=== PATIENT | female | born 1965 | race Two or more races ===

== ENCOUNTER 2019-12-24 08:29 | Day surgery (SDC) | payer OTHER ==
[~2019-12-24] VITALS: Ht 157.5 cm; Wt 55.3 kg
[2019-12-24] VITALS (9 sets, daily range): BP systolic 109–123; BP diastolic 67–81
[~2019-12-24 08:29] MED LIST: LR 1000ml 1,000 ML IVLG SCH; Lidocaine 1% Plain 30 ml INJ ONE
[2019-12-24] MEDS ORDERED: Propofol 200mg/20ml IV ONE (10:00)
[2019-12-24] MEDS ORDERED: LR 1000ml ONE (10:00)
--- NOTE | 2019-12-24 10:06 | Pre-Procedure Note/Attestation ---
Pre-Procedure Note/Attestation Complete Prior to Procedure Planned Procedure: not applicable Procedure Narrative: EGD Colon Indications for Procedure Pre-Operative Diagnosis: abd pain screening Attestation I attest that I discussed the nature of the procedure; its benefits; risks and complications; and alternatives (and the risks and benefits of such alternatives ), prior to the procedure, with the patient (or the patient's legal career representative). I attest that, if there was a reasonable possibility of needing a blood transfusion, the patient (or the patient's legal career representative) was given the [facility] standardized written summary, pursuant to the [employer] [place] Blood Safety Act ([place] Health and Safety Code # 1645, as amended). I attest that I re-evaluated the patient just prior to the surgery and that there has been no change in the patient's H&P, except as documented below: Emmy Duque MD Dec 24, 2019 10:06
--- NOTE | 2019-12-24 10:07 | Short Stay Surgery H&P ---
History of Present Illness History of Present Illness Chief Complaint see typed H&P HPI Eleni Billy is a 54 year old female who was admitted on for Gerd Asnd Screening Colonoscopy Patient History Allergies: Coded Allergies: Dairy (Verified Adverse Reaction, Intermediate, "gas pain", 12/24/19) Medication History No Active Prescriptions or Reported Meds Physical Exam Vital Signs Last Vital Signs Date Time Temp Pulse Resp B/P (MAP) Pulse Ox O2 Delivery O2 Flow Rate FiO2 12/24/19 09:13 97.6 76 18 114/80 100 Room Air Labs Laboratory Tests Test 12/24/19 08:45 Urine HCG, Qualitative Negative (NEGATIVE) Plan Attestation Are the patient's medical conditions optimized for surgery? Emmy Duque MD Dec 24, 2019 10:07
--- NOTE | 2019-12-24 10:28 | Anethesia Preoperative Eval ---
Anesthesia Pre-op PMH/ROS General Date of Evaluation: Dec 24, 2019 Time of Evaluation: 09:59 Anesthesiologist: Kennedy ASA Score: ASA 2 Mallampati Score Class I : Soft palate, uvula, fauces, pillars visible Class II: Soft palate, uvula, fauces visible Class III: Soft palate, base of uvula visible Class IV: Only hard plate visible Mallampati Classification: Class I Surgeon: Neto Diagnosis: GERD Surgical Procedure: EGD/Colonscopy Anesthesia History: none Family History: no anesthesia problems Allergies: Coded Allergies: Dairy (Verified Adverse Reaction, Intermediate, "gas pain", 12/24/19) Medications: see eMAR Patient NPO?: Yes Past Medical History Pulmonary: Reports: other - Bronchitis Gastrointestinal/Genitourinary: Reports: GERD Anesthesia Pre-op Phys. Exam Physician Exam Last Vital Signs Date Time Temp Pulse Resp B/P (MAP) Pulse Ox O2 Delivery O2 Flow Rate FiO2 12/24/19 09:13 97.6 76 18 114/80 100 Room Air Constitutional: NAD Neurologic: CN 2-12 intact Cardiovascular: RRR Respiratory: CTA Gastrointestinal: S/NT/ND Airway Exam Mallampati Score: Class I MO: full ROM: full Teeth: intact Anesthesia Pre-op A/P Labs Urine Test Test 12/24/19 08:45 Urine HCG, Qualitative Negative (NEGATIVE) Risk Assessment & Plan Assessment: ASA 2 Plan: TIVA Status Change Before Surgery: No Charly Benavides MD Dec 24, 2019 10:28
--- NOTE | 2019-12-24 10:29 | Immediate Post-Op Evaluation ---
Immediate Post-Op Evalulation Immediate Post-Op Evalulation Procedure: EGD/Colonoscopy Date of Evaluation: Dec 24, 2019 Time of Evaluation: 11:25 IV Fluids: 900 LR Blood Products: 0 Estimated Blood Loss: 1 Urinary Output: 0 Blood Pressure Systolic: 123 Blood Pressure Diastolic: 81 Pulse Rate: 69 Respiratory Rate: 16 O2 Sat by Pulse Oximetry: 100 Temperature (Fahrenheit): 97.9 Pain Score (1-10): 1 Nausea: No Vomiting: No Patient Status: awake, reacts, patent, none Hydration Status: adequate Charly Benavides MD Dec 24, 2019 10:29
--- NOTE | 2019-12-24 10:30 | 48 Hour Post Anesthesia Eval ---
Post Anesthesia Evaluation Procedure: EGD/Colonoscopy Date of Evaluation: Dec 24, 2019 Time of Evaluation: 13:34 Blood Pressure Systolic: 121 0: 69 Pulse Rate: 64 Respiratory Rate: 18 Temperature (Fahrenheit): 98 O2 Sat by Pulse Oximetry: 100 Airway: patent Nausea: No Vomiting: No Pain Intensity: 1 Hydration Status: adequate Cardiopulmonary Status: Stable Mental Status/LOC: patient returned to baseline Follow-up Care/Observations: 0 Post-Anesthesia Complications: 0 Follow-up care needed: ready to discharge Charly Benavides MD Dec 24, 2019 10:29
--- NOTE | 2019-12-24 11:01 | Endoscopy Procedure Note ---
Endoscopy Procedure Note General Indication for Procedure: abd pain, screen Procedures Performed: EGD, colonoscopy Operative Findings/Diagnosis: Normal Specimen: yes Pt Tolerated Procedure Well: Yes Estimated Blood Loss: none Anesthesia Anesthesiologist: Kennedy Anesthesia: MAC Medications Medication Given: see anesthesia record Inserted Devices Implant(s) used?: No GI Core Measures 50 yrs or older w/o bx or poly: Not Applicable 10yrs. F/U recommended: Not Applicable Emmy Duque MD Dec 24, 2019 11:01
--- NOTE | 2019-12-24 11:03 | Brief Operative Note ---
Immediate Post Operative Note Operative Note Chief Complaint: abd paiin, screen Pre-op Diagnosis: abd pain screening Procedure: esophagogastroduodenoscopy bx, colon, Post-op Diagnosis: Normal Surgeon: jc Anesthesiologist: Kennedy Anesthesia: MAC Specimen: yes Complications: none Condition: stable Fluids: given per anesthesia Estimated Blood Loss: none Drains: none Implant(s) used?: No Emmy Duque MD Dec 24, 2019 11:03
--- NOTE | 2019-12-24 17:01 | Procedure Note ---
DATE OF PROCEDURE: 12/24/2019 GASTROENTEROLOGY PROCEDURE REPORT PROCEDURE: Upper gastrointestinal endoscopy with biopsy as well as colonoscopy. SURGEON: Emmy Duque M.D. ANESTHESIA: Please see the separate anesthesiologist notes for details. PRE-ENDOSCOPIC DIAGNOSES: 1. Abdominal pain. 2. Need for screening colonoscopy. POST-ENDOSCOPIC DIAGNOSES: 1. Normal upper endoscopy, status post random biopsies of the duodenum, antrum, and lower esophagus. 2. Normal terminal ileum to about 10 cm. 3. Negative screening colonoscopy for polyps, although there was some minor degree of mucosal coverage due to the residual stool with seeds as described below. PROCEDURE IN DETAIL: The procedure, its risks, indications, alternatives, and possible complications were explained to the patient and informed consent was obtained. The patient was then sedated in the left lateral decubitus position and a diagnostic upper endoscope was introduced into oropharynx and advanced to the duodenum without difficulty. The endoscope was then gradually withdrawn and mucosa examined carefully. Examination of the upper gastrointestinal mucosa did not reveal any abnormalities. Biopsies of the duodenum, antrum, and lower esophagus were sent to pathology for review. The endoscope was removed. The rectal exam was done. The colonoscope was introduced in the rectum and advanced to the terminal ileum without difficulty. The colonoscope was then gradually withdrawn and mucosa examined carefully. The distal 10 cm of the terminal ileum were normal. The colonic mucosa itself was also normal. There was no evidence of polyps. In some portions of the colon on the left side, there was some small amounts of stool containing multiple seeds, which frequently occluded this colonoscope and could not be suctioned. Large polyps, however, were excluded, but the smaller lesions could potentially not be seen in these areas. The colonoscope was removed after retroflexed view of the rectum was done and the patient was sent to Recovery in good condition. COMPLICATIONS: None. RECOMMENDATIONS: 1. Follow up biopsy results. 2. Resume oral diet. 3. Outpatient followup. Emmy Duque M.D. DR: ROLF JOB#: [id number] CC: CORNELIO
== END 2019-12-24 12:30 | disposition home or self-care (01) ==
LOC: GAS 08:29
DX: Z12.11 Encounter for screening for malignant neoplasm of colon (principal); R10.9 Unspecified abdominal pain; K21.9 Gastro-esophageal reflux disease without esophagitis; K29.70 Gastritis, unspecified, without bleeding; B96.81 Helicobacter pylori [H. pylori] as the cause of diseases classified elsewhere
CPT/HCPCS: 43239; 45378; 81025; J2001; J2250; J2704; J7120; 94003; 94150